=== PATIENT | female | born 2000 | race African-American/Black ===

== ENCOUNTER 2019-01-06 14:39 | Emergency (ER) | payer SELFPAY ==
[~2019-01-06] VITALS: Ht 157.5 cm; Wt 50.0 kg
[2019-01-06] MEDS ORDERED: KETOROLAC 15MG/ML VIAL IM ONE (15:45)
[2019-01-06] MEDS ORDERED: LIDOCAINE HCL/PF 1% 10 MG/ML 5ML VIAL IJ ONE (15:45)
[2019-01-06] MEDS ORDERED: CYCLOBENZAPRINE 10MG TABLET PO ONE (15:45)
[2019-01-06 17:55] VITALS: BP 125/68
== END 2019-01-06 17:56 | disposition home or self-care (01) ==
LOC: ER 14:39
DX: S01.81XA Laceration without foreign body of other part of head, initial encounter (principal); S16.1XXA Strain of muscle, fascia and tendon at neck level, initial encounter; S09.8XXA Other specified injuries of head, initial encounter; M25.561 Pain in right knee; V43.62XA Car passenger injured in collision with other type car in traffic accident, initial encounter; Y93.89 Activity, other specified; Y92.014 Private driveway to single-family (private) house as the place of occurrence of the external cause
CPT/HCPCS: 12011; 73560; 96372; 99283; J1885; J3490